=== PATIENT | male | born 1985 | race Caucasian/White ===

== ENCOUNTER 2017-05-06 20:56 | Emergency (ER) | payer OTHER ==
[~2017-05-06] VITALS: Ht 170.2 cm; Wt 95.3 kg
[~2017-05-06 20:56] MED LIST: ALBUTEROL0.09 MG/A1 INH; AZITHROMYCIN250 MG PO; BENTYL20 MG PO; ESCITALOPRAM10 MG PO; FIORICET 300 MG1 CAP PO; FIORICET 325 MG1 TAB PO; GOOD SENSE IBU200 MG PO; LORAZEPAM0.5 MG PO; NEXIUM 40MG40 MG PO; NORCO 325 MG-51 TAB PO; PANTOPRAZOLE SO40 MG PO; PEPCID40 MG PO; PREDNISONE50 MG PO; ZOFRAN ODT4 MG PO
--- NOTE | 2017-05-06 21:04 | ED SKIN/ALLERGY COMPLAINT ---
History of Present Illness General Chief Complaint: Allergy Symptoms Stated Complaint: ALLERGIC RXN TO AMOX, THROAT SWELLING, 100% O2 Source: patient, old records Exam Limitations: no limitations Vital Signs & Intake/Output Vital Signs & Intake/Output Vital Signs Date Time Temp Pulse Resp B/P B/P Pulse O2 O2 Flow FiO2 Mean Ox Delivery Rate 05/06 2207 86 22 98 Room Air 05/06 2106 98.0 110 18 99 Room Air ED Intake and Output 05/07 0000 05/06 1200 Intake Total Output Total Balance Patient 210 lb Weight Allergies Coded Allergies: amoxicillin (Severe, THROAT SWELLING 05/06/17) bee venom protein (honey bee) (Intermediate, LOCAL SWELLING 05/06/17) clavulanic acid (From AUGMENTIN) (SWELLING 05/06/17) Reconcile Medications Amoxicillin/Potassium Clav (Amox-Clav 500-125 MG Tablet) 500 MG-125 MG TABLET 1 TAB PO BID INFECTION (Reported) Clindamycin HCl (Cleocin HCl) 150 MG CAPSULE 1 CAP PO TID DENTAL INFECTION Prednisone 10 MG TABLET 1 TAB PO DAILY ALLERGIC REACTION THEN TAKE 3 TABS FOR 3 DAYS THEN TAKE 2 TABS FOR 3 DAYS THEN TAKE 1 TAB FOR 3 DAYS Triage Nurses Notes Reviewed? yes HPI: Patient was put on amoxicillin by his dentist for dental infection. He took his first dose this evening and shortly thereafter focal diffuse body rash and feeling an itchy sensation in his throat. Patient states that now his voice sounds very hoarse. Patient denies any difficulty breathing or swallowing. He has never had a reaction like this before. Past History Travel History Traveled to [place] past 21 day No Medical History Any Pertinent Medical History? see below for history Neurological: migraine Respiratory: exercise induced asthma "when I was a kid" Gastrointestinal: GERD Blood Disorders: NONE Cancer(s): NONE Surgical History Surgical History: non-contributory, N Psychosocial History What is your primary language Icelandic Tobacco Use: Never used ETOH Use: occasional use Illicit Drug Use: denies illicit drug use Family History Family History, If Any: FATHER FH: testicular cancer, Onset: Unknown. MOTHER FH: breast cancer, Onset: Unknown. Hx Contributory? No Review of Systems Review of Systems Constitutional: Reports: no symptoms. EENTM: Reports: see HPI. Respiratory: Reports: no symptoms. Cardiovascular: Reports: no symptoms. GI: Reports: no symptoms. Genitourinary: Reports: no symptoms. Musculoskeletal: Reports: no symptoms. Skin: Reports: see HPI, rash. Neurological/Psychological: Reports: no symptoms. Hematologic/Endocrine: Reports: no symptoms. Immunologic/Allergic: Reports: no symptoms. All Other Systems: Reviewed and Negative Physical Exam Physical Exam General Appearance: well developed/nourished, mild distress Head: atraumatic Eyes: Bilateral: PERRL, EOMI. Ears, Nose, Throat: normal pharynx, normal ENT inspection, hearing grossly normal Neck: normal inspection, supple Respiratory: normal breath sounds, chest non-tender, no respiratory distress, lungs clear Cardiovascular: regular rate/rhythm, normal peripheral pulses Gastrointestinal: normal bowel sounds, soft, non-tender Back: normal inspection Extremities: normal inspection, normal range of motion, no edema Neurologic/Psych: awake, alert, oriented x 3, normal mood/affect Skin: rash Skin Problem Location: generalized Skin Problem Character: urticarial Lymphatic: no anterior cervical divya Progress Differential Diagnosis: allergic reaction, anaphylaxis, angioedema Plan of Care: Current Medications Sig/Silverio Start time Last Medication Dose Stop Time Status Admin Diphenhydramine HCl 25 MG ONCE ONE 05/06 2114 UNVr (Benadryl) 05/06 2115 Famotidine 20 MG ONCE ONE 05/06 2114 UNVr (Pepcid) 05/06 2115 Methylprednisolone 125 MG ONCE ONE 05/06 2114 UNVr (Solu Medrol) 05/06 2115 Comments: PT BEGINING TO FEEL BETTER. WILL CONTINUE TO OBSERVE CLOSELY PT CONTINUES TO DO WELL, NO FURTHER PHARYNGEAL SYMPTOMS Departure Departure Disposition: HOME OR SELF CARE Condition: Stable Clinical Impression Primary Impression: Allergic reaction caused by a drug Referrals: Wicho Swan MD Additional Instructions: STOP THE AMOXILCILLIN AND DO NOT TAKE ANY PENICILLINS ANYMORE TAKE CLINDA FOR THE TOOTH INFECTIONS TAKE STEROIDS PRESCRIBED TAKE BENADRYL NEEDED RETURN IF SYMPTOMS WORSEN OR FOR ANY CONCERNS Departure Forms: Customer Survey General Discharge Information Prescriptions: Current Visit Scripts Clindamycin HCl (Cleocin HCl) 1 CAP PO TID #30 CAP Prednisone 1 TAB PO DAILY #18 TAB THEN TAKE 3 TABS FOR 3 DAYS THEN TAKE 2 TABS FOR 3 DAYS THEN TAKE 1 TAB FOR 3 DAYS Critical Care Note Critical Care Note Critical Care Time: mins: (120 MIN)
[2017-05-06] MEDS ORDERED: AMOX-CLAV 500-1 EACH PO (21:18)
[2017-05-06] MEDS ORDERED: CLEOCIN HCL150 M1 PO (21:57)
[2017-05-06] MEDS ORDERED: PREDNISONE10 M2 PO (21:57)
[2017-05-07 01:16] VITALS: BP 116/78
== END 2017-05-07 01:23 ==
LOC: ERH 20:56
DX: T36.91XA Poisoning by unspecified systemic antibiotic, accidental (unintentional), initial encounter (principal); R21 Rash and other nonspecific skin eruption
CPT/HCPCS: 96374; 96375; J1200; J2930